=== PATIENT | female | born 1945 | race Caucasian/White ===

== ENCOUNTER 2016-08-29 12:42 | Day surgery (SDC) | payer OTHER ==
--- NOTE | ~2016-08-29 | EGD ---
EGD REPORT [facility] [address] [id number] NAME: DICK WORKMAN : [birth year] STATUS : REG [facility] [place] PAT#: [id number] AGE: 71 ADM/REG DATE : 08/29/16 MR#: [id number] REPORT SERV DATE: 08/29/16 DICTATED BY: CHELO OBREGON DATE: 08/29/16 REPORT STATUS : Draft TRANSCRIBED BY: [facility] DATE: 08/29/16 Endoscopy Center Patient Name: Dick Workman Date of : 1945 Attending MD: CHELO OBREGON MD Procedure Date No Time: 08/29/2016 Procedure: Upper GI endoscopy Indications: Gastro-esophageal reflux disease Referring MD: Kiya HAGAN MD Medicines: See the Anesthesia note for documentation of the administered medications Complications: No immediate complications. Procedure: Pre-Anesthesia Assessment: - ASA Grade Assessment: II - A patient with mild systemic disease. After obtaining informed consent, the endoscope was passed under direct vision. Throughout the procedure, the patient's blood pressure, pulse, and oxygen saturations were monitored continuously. The GIF [id number] was introduced through the mouth, and advanced to the second part of duodenum. The upper GI endoscopy was accomplished without difficulty. The patient tolerated the procedure well. Findings: The examined duodenum was normal. Moderate inflammation was found in the gastric body and in the gastric antrum. Biopsies were taken in antrum with a cold forceps for histology. A 3 cm hiatus hernia was present. The cardia and gastric fundus were normal on retroflexion. There were esophageal mucosal changes suspicious for short-segment Garcia's esophagus present in the lower third of the esophagus. The maximum longitudinal extent of these mucosal changes was 1 cm in length. Biopsies were taken with a cold forceps for histology. Two small sessile polyps were found in the gastric fundus. Biopsies were taken with a cold forceps for histology. Impression: - Normal examined duodenum. - Gastritis. Biopsied. - Hiatus hernia. - Esophageal mucosal changes suspicious for short-segment Garcia's esophagus. Biopsied. - Two gastric polyps. Biopsied. Recommendation: - Patient has a contact number available for EGD REPORT [address] [address] NAME: DICK WORKMAN : [birth year] STATUS : REG [facility] [place] PAT#: [id number] AGE: 71 ADM/REG DATE : 08/29/16 MR#: [id number] REPORT SERV DATE: 08/29/16 DICTATED BY: CHELO OBREGON DATE: 08/29/16 REPORT STATUS : Draft TRANSCRIBED BY: [employer] DATE: 08/29/16 emergencies. The signs and symptoms of potential delayed complications were discussed with the patient. Return to normal activities tomorrow. Written discharge instructions were provided to the patient. - Regular diet. - Continue present medications. - FOR YOUR BIOPSY RESULTS: Please go to [email or web address] and register to receive your results via the portal. Your biopsy results will be posted there in about 7 to 10 days. IF you do not see result in 10 days, call office. - Increase Nexium to twice per day Office visit in weeks - Avoid NSAIDS, BC powder, Goody's Powder Procedure Code(s): --- Professional --- 01534, Esophagogastroduodenoscopy, flexible, transoral; with biopsy, single or multiple Diagnosis Code(s): --- Professional --- K22.9, Disease of esophagus, unspecified K29.70, Gastritis, unspecified, without bleeding K44.9, Diaphragmatic hernia without obstruction or gangrene K31.7, Polyp of stomach and duodenum K21.9, Gastro-esophageal reflux disease without esophagitis CPT copyright 2013 [employer]. All rights reserved. The codes documented in this report are preliminary and upon handy worker review may be revised to meet current compliance requirements. Chelo Obregon MD CHELO OBREGON MD 08/29/2016 2:19 PM This report has been signed electronically. Number of Addenda: 0 Note Initiated On: 08/29/2016 2:03 PM Scope Withdrawal Time 0 hours 0 minutes 0 seconds [address] [id number]
[~2016-08-29 12:42] MED LIST: CALTRA600D PO; CYANO1000T PO; DSS PO; EVISTA60 PO; FLAXSEED OIL1000 MG PO; LEVOTHYROXIN100 MCG PO; MAGOX4 PO; NEXIUM20 M1 PO; NEXIUM40 PO; PHOSLO PO; PRINZIDE1 TA1 PO; VESICARE10 MG PO; VITAMIN D31000 UNIT PO; VITC500 PO; ZOLOFT25 MG PO
[2017-01-06] MEDS ORDERED: NORV5 PO (12:17)
[2017-01-06] MEDS ORDERED: TUMERIC CURCUMIN PO (12:18)
[2017-01-06] MEDS ORDERED: VITC500 PO (12:18)
== END 2016-08-29 23:59 | disposition home or self-care (01) ==
LOC: DMU 12:42
PROVIDERS: Internal Medicine Gastroenterology
PROC: 0DB38ZX Excision of Lower Esophagus, Via Natural or Artificial Opening Endoscopic, Diagnostic (ICD-10-PCS; 2016-08-29)
PROC: 0DB68ZX Excision of Stomach, Via Natural or Artificial Opening Endoscopic, Diagnostic (ICD-10-PCS; principal; 2016-08-29 14:00)
DX: K31.7 Polyp of stomach and duodenum (principal); K22.9 Disease of esophagus, unspecified; K29.70 Gastritis, unspecified, without bleeding; K44.9 Diaphragmatic hernia without obstruction or gangrene; K21.9 Gastro-esophageal reflux disease without esophagitis; I10 Essential (primary) hypertension; G47.33 Obstructive sleep apnea (adult) (pediatric); F32.9 Major depressive disorder, single episode, unspecified; F41.9 Anxiety disorder, unspecified; M19.90 Unspecified osteoarthritis, unspecified site; Z90.89 Acquired absence of other organs; Z95.0 Presence of cardiac pacemaker; Z96.641 Presence of right artificial hip joint; Z90.49 Acquired absence of other specified parts of digestive tract; Z98.890 Other specified postprocedural states; Z96.1 Presence of intraocular lens; H40.9 Unspecified glaucoma; I49.9 Cardiac arrhythmia, unspecified; Z88.7 Allergy status to serum and vaccine; Z91.09 Other allergy status, other than to drugs and biological substances
CPT/HCPCS: 88305; A9270-GY